=== PATIENT | female | born 1990 | race Caucasian/White ===

== ENCOUNTER 2016-12-16 12:33 | Emergency (ER) | payer MEDICAID ==
[2016-12-16 12:46] VITALS: BP 136/80
[2016-12-16 13:03] LABS: Urine Drugs of Abuse Note Disclamer
[2016-12-16 13:18] LABS: Bilirubin,Urine NEG (Negative); Blood,Urine MOD (Negative); Ketones,Urine NEG (Negative); Leukocyte Esterase,Urine NEG (Negative); Nitrite,Urine NEG (Negative); Protein,Urine <15 mg/dL mg/dL (Negative); Urobilinogen,Urine < 2.0 mg/dL (<2.0)
[2016-12-16 13:32] LABS: Basophils % (Auto) 0.5 % (0.0-1.8); Eosinophils % (Auto) 0.5 % (0.0-4.3); Hematocrit 36.1 % (30.3-42.9); Mean Corpuscular HGB Conc 33 % (30-34); Mean Corpuscular Hemoglobin 31 pg (28-32); Mean Corpuscular Volume 94 fl (79-97); Platelet Count 265 K/mm3 (140-440); Red Blood Count 3.86 M/mm3 (3.65-5.03); Red Cell Distribution Width 13.8 % (13.2-15.2); White Blood Count 10.1 K/mm3 (4.5-11.0)
[2016-12-16 13:58] LABS: Anion Gap 19 mmol/L; Blood Urea Nitrogen 8 mg/dL (7-17); Calcium 8.8 mg/dL (8.4-10.2); Carbon Dioxide 23 mmol/L (22-30); Chloride 98.9 mmol/L (98-107); Glucose 86 mg/dL (65-100); Potassium 3.7 mmol/L (3.6-5.0); Sodium 137 mmol/L (137-145)
--- NOTE | 2016-12-16 15:23 | Emergency Department Report ---
HPI - General Chief Complaint: Psych Time Seen by Provider: 12/16/16 15:14 - HPI HPI: Chief complaint: Patient reports to me that she does not remember how she got here or why she came. HPI: According to the nursing notes patient came to the emergency department today requesting help. According to the nursing notes patient states that she doesn't want to use drugs anymore and tried to overdose on meth amphetamines and cocaine. Patient supposedly did drink alcohol at work and patient does admit to drinking alcohol this morning supposedly to the point of not being able to remember what happened. Patient currently is denying homicidal or suicidal thoughts. According to the nursing notes patient drank 2 bottles of alcohol this morning. Mode of arrival: private car\ Source: Patient and nursing notes Began: Unclear Duration: See above Context: See above Quality: Denies pain to me Severity: 0 out of 10 Improved with: Nothing Worsened with: Nothing Associated signs and symptoms: No nausea, vomiting or diarrhea no chest pain or abdominal pain. Patient states that she is concerned she might be as her breasts are slightly sore. Patient advised she was not . ED Past Medical Hx - Past Medical History Hx Asthma: Yes (childhood asthma) - Surgical History Additional Surgical History: T & A. umbilical hernia repair - Social History Smoking Status: Current Every Day Smoker Substance Use Type: Alcohol, Cocaine, Marijuana, Methamphetamines - Medications Home Medications: Home Medications Medication Instructions Recorded Confirmed Last Taken Type No Known Home Medications [No 12/16/16 12/16/16 Unknown History Reported Home Medications] ED Review of Systems ROS: Stated complaint: OVERDOSE ATTEMPT Other details as noted in HPI ROS Constitutional: No fever ENT: No uri symptoms Cardiovascular: No chest pain Respiratory: No sob or cough GI: No nausea vomiting or diarrhea : No dysuria frequency or urgency, Skin: No rash Neuro: No focal weakness or numbness Psych: h/o depression patient states she has seen a psychiatrist in the past. Lucas/lymph: No edema Physical Exam - Physical Exam Vital Signs: Vital Signs 12/16/16 12:42 Temperature 98.9 F Pulse Rate 89 Respiratory 18 Rate Blood Pressure 136/80 O2 Sat by Pulse 100 Oximetry Physical Exam: GENERAL: The patient is well-developed well-nourished . HEENT: Normocephalic. Atraumatic. Extraocular motions are intact. Patient has moist mucous membranes. NECK: Supple. No meningitic signs are noted. There is no adenopathy noted. CHEST/LUNGS: Clear to auscultation. There is no respiratory distress noted. HEART/CARDIOVASCULAR: Regular. There is no tachycardia. There is no gallop rub or murmur. ABDOMEN: Abdomen is soft, nontender. Patient has normal bowel sounds. There is no abdominal distention. SKIN: There is no rash. There is no edema. There is no diaphoresis. NEURO: The patient is awake, alert, and oriented. The patient is cooperative. The patient has no focal neurologic deficits. The patient has normal speech. MUSCULOSKELETAL: There is no tenderness or deformity. There is no limitation range of motion. There is no evidence of acute injury. ED Course Vital Signs 12/16/16 12:42 Temperature 98.9 F Pulse Rate 89 Respiratory 18 Rate Blood Pressure 136/80 O2 Sat by Pulse 100 Oximetry - Reevaluation(s) Reevaluation #1: 12/16/16 15:47 Will have mental health track repair worker evaluate the patient. We'll currently make the patient [id number] based on statements she told the nursing staff earlier today 12/16/16 18:11 Mental health track repair worker evaluated the patient and feels that the patient was possibly slipped something in her drink as she cannot remember getting here. Patient also is not intoxicated at this time. We will allow the patient to go home and give her mental health referrals to follow up with help stopping her drug usage. ED Medical Decision Making - Lab Data Result diagrams: 12/16/16 13:18 12/16/16 13:18 Laboratory Tests 12/16/16 12/16/16 12/16/16 12:58 12:58 13:18 Urine HCG, Qual Negative Urine Cocaine Screen Presumptive positive Plasma/Serum Alcohol < 0.01 Urinalysis within normal limits. Critical care attestation.: If time is entered above; I have spent that time in minutes in the direct care of this critically ill patient, excluding procedure time. ED Disposition Clinical Impression: Substance abuse Disposition: DISCHARGED TO HOME OR SELFCARE Is pt being admited?: No Does the pt Need Aspirin: No Condition: Stable Instructions: Cocaine Abuse (ED), Depression (ED), Polysubstance Abuse (ED) Referrals: PRIMARY CARE, [Primary Care Provider] - 3-5 Days [facility] [Outside] - 3-5 Days Time of Disposition: 18:13
== END 2016-12-16 18:23 | disposition home or self-care (01) ==
LOC: ED 12:33
DX: F10.10 Alcohol abuse, uncomplicated (principal); F19.10 Other psychoactive substance abuse, uncomplicated; F15.10 Other stimulant abuse, uncomplicated; F14.10 Cocaine abuse, uncomplicated; F12.10 Cannabis abuse, uncomplicated; J45.909 Unspecified asthma, uncomplicated; F17.200 Nicotine dependence, unspecified, uncomplicated
CPT/HCPCS: 36415; 80048; 80307; 81001; 81025; 85025; 99283; G0480; 80320